=== PATIENT | female | born 1975 | race Caucasian/White ===

== ENCOUNTER 2023-07-08 16:19 | Emergency (ER) | payer OTHER ==
[~2023-07-08] VITALS: Ht 170.2 cm; Wt 95.3 kg
[2023-07-08 16:43] VITALS: BP_SYST 124; PULSE 70; RESP 18; TEMP 97.9; O2SAT 99
[2023-07-08] MEDS: KETOROLAC 30 MG/ML VIAL IM ONE (19:37)
[2023-07-08] MEDS ORDERED: IBUP-2213 PO (20:13)
[2023-07-08] MEDS ORDERED: ACET-10509 PO (20:13)
== END 2023-07-08 20:25 | disposition home or self-care (01) ==
LOC: MED 16:19
DX: M25.561 Pain in right knee (principal); M79.661 Pain in right lower leg; M79.651 Pain in right thigh; E11.9 Type 2 diabetes mellitus without complications; Z79.1 Long term (current) use of non-steroidal anti-inflammatories (NSAID)
CPT/HCPCS: 73562; 96372; 99283; J1885

== ENCOUNTER 2023-08-07 21:11 | Emergency (ER) | payer OTHER ==
[~2023-08-07] VITALS: Ht 170.2 cm; Wt 99.8 kg
[~2023-08-07 21:11] MED LIST: ACET-10509 PO; IBUP-2213 PO
[2023-08-07 21:20] VITALS: BP 140/76; PULSE 80; RESP 16; TEMP 98.3; O2SAT 99
[2023-08-07] MEDS: LIDOCAINE/EPI 1% 1:100000 20 ML VIAL INJ ONE (23:10)
== END 2023-08-07 23:55 | disposition home or self-care (01) ==
LOC: MED 21:11
DX: S81.811A Laceration without foreign body, right lower leg, initial encounter (principal); E11.9 Type 2 diabetes mellitus without complications; E78.5 Hyperlipidemia, unspecified; Z79.899 Other long term (current) drug therapy; W45.8XXA Other foreign body or object entering through skin, initial encounter; Y93.89 Activity, other specified; Y92.89 Other specified places as the place of occurrence of the external cause; Y99.8 Other external cause status
CPT/HCPCS: 12002; 90471; 90715; 99283; J2001

== ENCOUNTER 2023-08-09 18:37 | Emergency (ER) | payer OTHER ==
[~2023-08-09] VITALS: Ht 172.7 cm; Wt 95.3 kg
[2023-08-09 19:08] VITALS: BP 131/57; PULSE 86; RESP 18; TEMP 97.8; O2SAT 98
[2023-08-09 21:56] VITALS: BP 127/61; PULSE 84; RESP 18; TEMP 98.1; O2SAT 98
== END 2023-08-09 21:56 | disposition left against medical advice (07) ==
LOC: MED 18:37
DX: M79.605 Pain in left leg (principal); E11.9 Type 2 diabetes mellitus without complications; Z53.21 Procedure and treatment not carried out due to patient leaving prior to being seen by health care provider

== ENCOUNTER 2023-08-13 17:16 | Emergency (ER) | payer OTHER ==
[~2023-08-13] VITALS: Ht 170.2 cm; Wt 95.7 kg
[2023-08-13 17:28] VITALS: BP 126/50; PULSE 87; RESP 16; TEMP 98.2; O2SAT 97
[2023-08-13] MEDS ORDERED: CYCL-711 PO (17:55)
[2023-08-13] MEDS ORDERED: ACET-10509 PO (17:55)
[2023-08-13 18:25] VITALS: BP 126/50; PULSE 87; RESP 16; TEMP 98.2; O2SAT 97
== END 2023-08-13 18:25 | disposition home or self-care (01) ==
LOC: MED 17:16
DX: M54.50 Low back pain, unspecified (principal); S81.811D Laceration without foreign body, right lower leg, subsequent encounter; E11.9 Type 2 diabetes mellitus without complications; Z79.1 Long term (current) use of non-steroidal anti-inflammatories (NSAID); Z79.899 Other long term (current) drug therapy; Z48.00 Encounter for change or removal of nonsurgical wound dressing; X58.XXXD Exposure to other specified factors, subsequent encounter
CPT/HCPCS: 99283

== ENCOUNTER 2023-09-30 18:23 | Emergency (ER) | payer OTHER ==
[~2023-09-30] VITALS: Ht 170.2 cm; Wt 98.5 kg
[~2023-09-30 18:23] MED LIST changes: -ACET-10509 PO; +ACET500T99 PO; +CYCL-711 PO
[2023-09-30 18:28] VITALS: BP 118/70; PULSE 83; RESP 18; TEMP 98; O2SAT 97
[2023-09-30] MEDS: TETRACAINE HCL/PF 0.5% OPTH 4 ML BTL OP ONE (19:22)
[2023-09-30] MEDS: IBUPROFEN 600 MG TAB PO ONE (19:22)
[2023-09-30] MEDS: FLUORESCEIN OPTH STRIP 1 MG OP ONE (19:24)
[2023-09-30] MEDS ORDERED: METH-1681 PO (20:20)
== END 2023-09-30 20:30 | disposition home or self-care (01) ==
LOC: MED 18:23
DX: R51.9 Headache, unspecified (principal); G89.29 Other chronic pain; M25.561 Pain in right knee; H40.053 Ocular hypertension, bilateral; E11.9 Type 2 diabetes mellitus without complications; Z79.899 Other long term (current) drug therapy
CPT/HCPCS: 99284